=== PATIENT | female | born 1950 | race Caucasian/White ===

== ENCOUNTER → 2020-03-15 | Outpatient (CLI) | payer MEDICARE | LOC: MC.RAD 11:14 | DX: Z12.31 Encounter for screening mammogram for malignant neoplasm of breast (principal) ==

== ENCOUNTER 2020-08-21 13:53 | Emergency (ER) | payer MEDICARE ==
[~2020-08-21] VITALS: Ht 165.1 cm; Wt 63.2 kg
[2020-08-21 13:53] VITALS: TEMP 98.5
[2020-08-21] MEDS ORDERED: PRINIVIL20 MG PO (14:02)
[2020-08-21] MEDS ORDERED: LIPITOR 40MG TA40 MG PO (14:03)
[2020-08-21] MEDS ORDERED: PRILOSEC 20MG20 MG PO (14:03)
[2020-08-21] MEDS ORDERED: NORVASC 5MG5 MG/TAB PO (14:03)
[2020-08-21] MEDS ORDERED: PERCOCET 325 MG1 TAB PO (14:04)
[2020-08-21] MEDS ORDERED: CYMBALTA 60MG60 MG PO (14:04)
[2020-08-21] MEDS ORDERED: NEURONTIN300 MG/CAP PO (14:04)
[2020-08-21] MEDS ORDERED: DESYREL 50MG50 MG PO (14:05)
[2020-08-21] MEDS ORDERED: KLONOPIN2 MG PO (14:05)
[2020-08-21] MEDS ORDERED: DITROPAN XL10 MG PO (14:06)
[2020-08-21] MEDS ORDERED: MAG-OX 400400 MG/TAB PO (14:06)
[2020-08-21 14:47] LABS: BASO % 0.2 % (0.0-2.0); EOS % 0.1 % (0-4.0); GRAN # 13.1 (1.4-6.5); HEMOGLOBIN 12.3 g/dl (12.5-16.0); LYMPH # 1.6 (1.2-3.4); LYMPH % 9.7 % (20.0-51.0); MEAN CELL VOLUME 84 fl (80.0-100.0); MEAN CORPUSCULAR HEMOGLOBIN 28 pg (27.0-31.0); MEAN CORPUSCULAR HGB CONC 34 g/dl (33.0-37.0); MEAN PLATELET VOLUME 8.4 fl (7.4-10.4); MONO # 1.1 (0.1-0.6); MONO % 6.7 % (1.7-9.3); PLATELET COUNT 263 K/mm3 (130-400); RED BLOOD COUNT 4.36 M/mm3 (4.10-5.30); REDCELL DISTRIBUTION WIDTH-CV 13.9 % (11.5-14.5)
[2020-08-21 14:52] LABS: HEMATOCRIT 36.4 % (37.0-47.0)
[2020-08-21 14:56] LABS: ALBUMIN 4.5 gm/dL (3.5-5.0); BILIRUBIN,TOTAL 0.5 mg/dL (0.0-1.0); CALCIUM 9.3 mg/dL (8.4-10.2); CREATININE, serum 0.58 (0.52-1.25); POTASSIUM 4.5 mmol/L (3.4-5.0)
[2020-08-21 16:37] LABS: MUCOUS Present /lpf; PH 8 (5-8); URINE APPEARANCE Cloudy; URINE BACTERIA None Seen /hpf; URINE BILIRUBIN Negative (NEGATIVE); URINE BLOOD 1+ (NEGATIVE); URINE COLOR Yellow; URINE GLUCOSE Negative (NEGATIVE); URINE KETONE Negative (NEGATIVE); URINE LEUKOCYTE ESTERASE 3+ (NEGATIVE); URINE NITRATE Negative (NEGATIVE); URINE PROTEIN(semi-quant) Negative (NEGATIVE); URINE RBC 0-2 /hpf; URINE UROBILINOGEN Negative (NEGATIVE)
[2020-08-21] MEDS ORDERED: CEFTIN500 MG PO (18:12)
[2020-08-21 18:26] VITALS: BP 151/85; PULSE 75
[2020-08-22 11:43] LABS: COLLECTION METHOD CATHETER
== END 2020-08-21 18:44 | disposition home or self-care (01) ==
LOC: COL.ER 13:53
PROVIDERS: Physician Assistant
DX: K56.41 Fecal impaction (principal); N39.0 Urinary tract infection, site not specified; I10 Essential (primary) hypertension; G89.29 Other chronic pain; M54.9 Dorsalgia, unspecified; K21.9 Gastro-esophageal reflux disease without esophagitis; E78.5 Hyperlipidemia, unspecified; F17.210 Nicotine dependence, cigarettes, uncomplicated; Z88.0 Allergy status to penicillin; Z79.891 Long term (current) use of opiate analgesic; Z79.899 Other long term (current) drug therapy
CPT/HCPCS: J0696; J1885; J7030; Q9967

== ENCOUNTER 2020-09-22 22:52 | Emergency (ER) | payer MEDICARE ==
[~2020-09-22] VITALS: Ht 165.1 cm; Wt 65.9 kg
[~2020-09-22 22:52] MED LIST: CEFTIN500 MG PO; CYMBALTA 60MG60 MG PO; DESYREL 50MG50 MG PO; DITROPAN XL10 MG PO; KLONOPIN2 MG PO; LIPITOR 40MG TA40 MG PO; MAG-OX 400400 MG/TAB PO; NEURONTIN300 MG/CAP PO; NORVASC 5MG5 MG/TAB PO; PERCOCET 325 MG1 TAB PO; PRILOSEC 20MG20 MG PO; PRINIVIL20 MG PO
[2020-09-22 23:00] VITALS: TEMP 98
[2020-09-22 23:22] LABS: BASO # 0.1 (0.0-0.2); BASO % 0.9 % (0.0-2.0); EOS # 0.2 (0.0-0.7); EOS % 2.9 % (0-4.0); GRAN # 5.1 (1.4-6.5); GRAN % 62.9 % (42.2-75.2); LYMPH # 2.1 (1.2-3.4); LYMPH % 25.2 % (20.0-51.0); MEAN CELL VOLUME 90 fl (80.0-100.0); MEAN CORPUSCULAR HGB CONC 32 g/dl (33.0-37.0); MEAN PLATELET VOLUME 9.5 fl (7.4-10.4); MONO # 0.6 (0.1-0.6); MONO % 7.7 % (1.7-9.3); PLATELET COUNT 177 K/mm3 (130-400); RED BLOOD COUNT 3.32 M/mm3 (4.10-5.30); REDCELL DISTRIBUTION WIDTH-CV 13.9 % (11.5-14.5)
[2020-09-22 23:24] LABS: HEMATOCRIT 29.7 % (37.0-47.0); HEMOGLOBIN 9.5 g/dl (12.5-16.0); MEAN CORPUSCULAR HEMOGLOBIN 29 pg (27.0-31.0)
[2020-09-22 23:34] LABS: ALANINE AMINOTRANSFERASE 10 U/L (4-34); ALBUMIN 3.5 gm/dL (3.5-5.0); ALKALINE PHOSPHATASE 66 U/L (50-136); ANION GAP 0 mmol/L (7-16); AST,SGOT 28 U/L (15-37); BILIRUBIN,TOTAL 0.2 mg/dL (0.0-1.0); BLOOD UREA NITROGEN 18 mg/dL (7-17); CALCIUM 8.1 mg/dL (8.4-10.2); CARBON DIOXIDE 27 mmol/L (22-30); CHLORIDE 105 mmol/L (98-107); CREATININE, serum 0.72 (0.52-1.25); GLUCOSE 89 mg/dL (74-106); SODIUM 132 mmol/L (137-145); TOTAL PROTEIN 6.6 gm/dL (6.4-8.2)
[2020-09-22 23:50] LABS: TROPONIN-I < 0.012 ng/mL (0.000-0.035)
[2020-09-23 08:00] VITALS: BP 151/86; PULSE 69
[2020-09-23] MEDS ORDERED: ABILIFY5 MG PO (18:54)
[2020-09-23] MEDS ORDERED: ZOVIRAX400 MG PO (18:55)
[2020-09-23] MEDS ORDERED: PROAIR HFA0.09 MG/AC IH (18:56)
== END 2020-09-23 10:00 | disposition home or self-care (01) ==
LOC: COL.ER 22:52
PROVIDERS: Emergency Medicine
DX: S09.90XA Unspecified injury of head, initial encounter (principal); K56.41 Fecal impaction; F11.129 Opioid abuse with intoxication, unspecified; N39.0 Urinary tract infection, site not specified; D64.9 Anemia, unspecified; I10 Essential (primary) hypertension; E78.5 Hyperlipidemia, unspecified; K21.9 Gastro-esophageal reflux disease without esophagitis; F41.9 Anxiety disorder, unspecified; F32.9 Major depressive disorder, single episode, unspecified; M54.9 Dorsalgia, unspecified; G89.29 Other chronic pain; Z79.891 Long term (current) use of opiate analgesic; Z79.899 Other long term (current) drug therapy; W01.198A Fall on same level from slipping, tripping and stumbling with subsequent striking against other object, initial encounter; Y93.89 Activity, other specified
CPT/HCPCS: J2310; J7030

== ENCOUNTER 2020-11-07 18:52 | Emergency (ER) | payer MEDICARE ==
[~2020-11-07] VITALS: Ht 165.1 cm; Wt 63.6 kg
[~2020-11-07 18:52] MED LIST changes: +ABILIFY5 MG PO; +PROAIR HFA0.09 MG/AC IH; +ZOVIRAX400 MG PO
[2020-11-07 19:41] LABS: COLLECTION METHOD CATHETER
[2020-11-07 19:47] LABS: MUCOUS Present /lpf; PH 5 (5-8); SQUAMOUS EPITHELIAL 0-2 /hpf; URINE APPEARANCE Clear; URINE BACTERIA None Seen /hpf; URINE BILIRUBIN Negative (NEGATIVE); URINE BLOOD Negative (NEGATIVE); URINE COLOR Yellow; URINE GLUCOSE Negative (NEGATIVE); URINE KETONE Negative (NEGATIVE); URINE LEUKOCYTE ESTERASE Negative (NEGATIVE); URINE NITRATE Negative (NEGATIVE); URINE PROTEIN(semi-quant) Negative (NEGATIVE); URINE RBC 0-2 /hpf; URINE UROBILINOGEN Negative (NEGATIVE)
[2020-11-07 20:00] LABS: TRICYCLIC ANTIDEPRESS URINE NEGATIVE
[2020-11-07 20:13] LABS: BASO % 0.6 % (0.0-2.0); EOS # 0.2 (0.0-0.7); EOS % 2.5 % (0-4.0); GRAN # 3.7 (1.4-6.5); GRAN % 58.6 % (42.2-75.2); HEMOGLOBIN 10.4 g/dl (12.5-16.0); LYMPH # 1.9 (1.2-3.4); LYMPH % 29.2 % (20.0-51.0); MEAN CELL VOLUME 88 fl (80.0-100.0); MEAN CORPUSCULAR HEMOGLOBIN 29 pg (27.0-31.0); MEAN CORPUSCULAR HGB CONC 33 g/dl (33.0-37.0); MEAN PLATELET VOLUME 9.8 fl (7.4-10.4); MONO # 0.5 (0.1-0.6); MONO % 8.5 % (1.7-9.3); PLATELET COUNT 137 K/mm3 (130-400); RED BLOOD COUNT 3.59 M/mm3 (4.10-5.30)
[2020-11-07 20:14] LABS: HEMATOCRIT 31.7 % (37.0-47.0)
[2020-11-07 20:29] LABS: ALBUMIN 3.6 gm/dL (3.5-5.0); BILIRUBIN,TOTAL 0.3 mg/dL (0.0-1.0); CALCIUM 8.3 mg/dL (8.4-10.2); CREATININE, serum 0.87 (0.52-1.25); POTASSIUM 3.6 mmol/L (3.4-5.0); TOTAL PROTEIN 6.6 gm/dL (6.4-8.2)
[2020-11-08 03:26] VITALS: BP 134/71; PULSE 91; TEMP 98.1
== END 2020-11-08 03:26 | disposition home or self-care (01) ==
LOC: COL.ER 18:52
PROVIDERS: Nurse Practitioner
DX: S09.90XA Unspecified injury of head, initial encounter (principal); R41.82 Altered mental status, unspecified; F11.129 Opioid abuse with intoxication, unspecified; F41.9 Anxiety disorder, unspecified; I10 Essential (primary) hypertension; E78.5 Hyperlipidemia, unspecified; K21.9 Gastro-esophageal reflux disease without esophagitis; G89.29 Other chronic pain; M54.9 Dorsalgia, unspecified; F17.210 Nicotine dependence, cigarettes, uncomplicated; Z79.899 Other long term (current) drug therapy; W19.XXXA Unspecified fall, initial encounter
CPT/HCPCS: J2310

== ENCOUNTER → 2020-12-05 | Outpatient (CLI) | payer MEDICARE | LOC: COL.RAD 13:15 | DX: M48.061 Spinal stenosis, lumbar region without neurogenic claudication (principal); S32.010A Wedge compression fracture of first lumbar vertebra, initial encounter for closed fracture; I10 Essential (primary) hypertension; N17.9 Acute kidney failure, unspecified; Z98.1 Arthrodesis status | CPT/HCPCS: A9585 ==